=== PATIENT | female | born 1985 | race Two or more races ===

== ENCOUNTER → 2024-09-10 | Outpatient (CLI) | payer OTHER, SELFPAY ==
[2024-09-10 10:56] LABS: T4 (Thyroxine) 11.0 mcg/dL (4.5-10.9)
[2024-09-10 11:05] LABS: Free T4 (Free Thyroxine) 1.46 ng/dL (0.89-1.76); Thyroid Stimulating Hormone 5.58 uIU/mL (0.55-4.78)
[2024-09-16 06:47] LABS: T3 Uptake* 26 % (22-35); T3,Total* 93 ng/dL (76-181)
== END | disposition home or self-care (01) ==
DX: E03.9 Hypothyroidism, unspecified (principal)
CPT/HCPCS: 36415; 84436; 84439; 84443; 84479; 84480